=== PATIENT | female | born 1985 | race Caucasian/White ===

== ENCOUNTER → 2017-02-22 | Outpatient (CLI) | payer MEDICAID | LOC: FIMAGING 12:56 | PROVIDERS: ATTEND Registered Nurse | DX: Z36.0 Encounter for antenatal screening for chromosomal anomalies (principal); Z3A.12 12 weeks gestation of pregnancy ==

== ENCOUNTER → 2017-05-10 | Outpatient (CLI) | payer MEDICAID | LOC: FIMAGING 09:58 | PROVIDERS: ATTEND Registered Nurse | DX: Z34.92 Encounter for supervision of normal pregnancy, unspecified, second trimester (principal); Z3A.23 23 weeks gestation of pregnancy ==

== ENCOUNTER → 2017-07-09 | Outpatient (CLI) | payer MEDICAID | LOC: FIMAGING 13:49 | PROVIDERS: ATTEND Registered Nurse | DX: O35.8XX0 Maternal care for other (suspected) fetal abnormality and damage, not applicable or unspecified (principal); Z3A.32 32 weeks gestation of pregnancy ==